=== PATIENT | male | born 1960 | race Caucasian/White ===

== ENCOUNTER → 2018-09-26 | Outpatient (CLI) | payer MEDICARE ==
--- NOTE | 2018-09-26 21:28 | Diagnostic Imaging Report ---
CT LUMBAR SPINE WO HISTORY: Left lower back pain COMPARISON: CT of the lumbar spine from outside facility dated 02/04/2018 TECHNIQUE: Axial CT images of the lumbar spine were obtained without contrast. Coronal and sagittal reconstructions obtained from the axial data. One or more of the following dose reduction techniques were used: Automated exposure control, adjustment of the mA and/or kV according to patient size, and/or utilization of iterative reconstruction technique. DISCUSSION: Subcutaneous nerve stimulator device in the left flank is partially visualized with leads coursing into the thoracic spinal canal and right paraspinal soft tissues at L3. Two additional retained leads are seen in the lower lumbar spinal canal. There are 5 nonrib-bearing lumbar vertebral bodies. Lumbar lordosis is preserved. There is no significant scoliosis or subluxation. No acute fracture or compression deformity is seen is seen. Chronic, cortical irregularity in the medial left iliac bone is likely related to prior osteotomy. No gross spinal canal mass is seen. There is marked fatty paraspinal muscle atrophy at the lumbosacral junction. The paravertebral and paraspinal soft tissues are otherwise unremarkable. Mild multilevel spondylotic changes are present. Mild to moderate bilateral sacroiliac degenerative changes are present with partial fusion. L1-L2: Mild bilateral foraminal stenoses due to disc bulge and facet arthrosis. No gross canal stenosis. L2-L3: Moderate bilateral foraminal stenoses mainly due to facet arthrosis. No gross canal stenosis. L3-L4: Suspected severe canal stenosis due to disc bulge and ligamentum flavum thickening. Mild to moderate bilateral foraminal stenoses due to disc bulge and facet arthrosis. L4-L5: At least mild canal stenosis due to disc bulge and ligamentum flavum thickening. Mild right and mild to moderate left foraminal stenoses due to disc bulge and facet arthrosis. There is a pseudarthrosis between the right L4 and L5 transverse processes. L5-S1: Apparent fusion/laminectomy changes with osseous bridging across the bilateral L5-S1 facet joints. Mild bilateral foraminal stenoses due to posterior disc osteophyte complex and facet arthrosis. No gross canal stenosis. Aortoiliac stents are in place. Underlying calcified atherosclerosis is present. IMPRESSION: 1. Partially visualized subcutaneous nerve stimulator device in the left flank with leads coursing into the thoracic spinal canal and right paraspinal soft tissues at L3. Two additional retained leads in the lower lumbar spinal canal. 2. Fusion/laminectomy changes at L5-S1. Associated right L4-L5 transverse process pseudarthrosis. 3. No acute osseous abnormalities. 4. Underlying mild multilevel spondylosis. 5. Suspected severe degenerative canal stenosis at L3-L4. 6. Mild to moderate multilevel bilateral degenerative foraminal stenoses as described above. 7. Mild to moderate bilateral sacroiliac degenerative change with partial fusion. Signed by: Dr. Mekhi Dumas M.D. on 09/26/2018 9:24 PM
== END ==
LOC: CT 14:18
PROVIDERS: ATTEND Family Medicine
DX: R15.9 Full incontinence of feces (principal)
CPT/HCPCS: 72131

== ENCOUNTER 2024-05-24 15:19 | Emergency (ER) | payer MEDICARE ==
[~2024-05-24] VITALS: Ht 190.5 cm; Wt 112.0 kg
[~2024-05-24 15:19] MED LIST: AMLODIPINE BESYL5 MG PO; ASPIR 8181 MG PO; CLONIDINE; CRESTOR10 MG PO; FLUOXETINE HCL20 MG PO; GARLIC1000 MG PO; LISINOPRIL-HCT1 EACH PO; MORPHINE; MORPHINE PUMP; OMEGA 3 1,0001 EACH PO; PANTOPRAZOLE SO40 MG PO; TRILIPIX135 MG PO
[2024-05-24 15:48] VITALS: TEMP 98
[2024-05-24 17:38] LABS: BASOPHILS % 0.3 % (0.0-1.0); HEMATOCRIT 42.4 % (38.2-49.6); HEMOGLOBIN 14.5 g/dL (14.0-18.0); LYMPHOCYTES # (AUTO) 0.9 (1.0-3.2); LYMPHOCYTES % 12.3 % (18.0-39.1); MEAN CORPUSCULAR HEMOGLOBIN 27.5 pg (28-32); MEAN CORPUSCULAR HGB CONC 34.2 g/dL (31-35); MEAN CORPUSCULAR VOLUME 80.3 fL (81-99); MONOCYTES # (AUTO) 0.2 (0.2-0.8); NEUTROPHILS # (AUTO) 5.6 (2.1-6.9); PLATELET COUNT 133 x10e3/uL (140-360); RED BLOOD COUNT 5.28 x10e6/uL (4.3-5.7); RED CELL DISTRIBUTION WIDTH 17.9 % (11.7-14.4); WHITE BLOOD COUNT 7.01 x10e3/uL (4.8-10.8)
[2024-05-24 17:52] LABS: INR 1.02; PARTIAL THROMBOPLASTIN TIME 24.7 seconds (23.8-35.5)
[2024-05-24 17:57] LABS: ALBUMIN 3.7 g/dL (3.5-5.0); ALBUMIN/GLOBULIN RATIO 1.3 (0.8-2.0); ANION GAP 22.3 mmol/L (8-16); BILIRUBIN,TOTAL 0.8 mg/dL (0.2-1.2); CREATININE, SERUM 1.68 mg/dL (0.72-1.25); TOTAL PROTEIN 6.6 g/dL (6.5-8.1)
[2024-05-24 17:59] LABS: POTASSIUM 3.3 mmol/L (3.5-5.1)
[2024-05-24 19:01] VITALS: PULSE 60; RESP 16; O2SAT 95
== END 2024-05-24 19:06 | disposition other institution (70) ==
LOC: ER 15:50
DX: S02.32XA Fracture of orbital floor, left side, initial encounter for closed fracture (principal); W01.0XXA Fall on same level from slipping, tripping and stumbling without subsequent striking against object, initial encounter; Y93.01 Activity, walking, marching and hiking; Y92.89 Other specified places as the place of occurrence of the external cause; I10 Essential (primary) hypertension; E78.5 Hyperlipidemia, unspecified; Z85.118 Personal history of other malignant neoplasm of bronchus and lung
CPT/HCPCS: 36415; 70450; 70486; 72125; 80053; 85025; 85610; 85730; 99284